=== PATIENT | female | born 1935 | race Caucasian/White ===

== ENCOUNTER 2017-01-15 06:48 | Day surgery (SDC) | payer MEDICARE, BC ==
[~2017-01-15 06:48] MED LIST: Lactated Ringers 1,000 ML IV SCH; Lidocaine 1%/Sod Bicarbonate in NS 8.4% 1 ML Syringe PRN; Sodium Chloride 0.9% 10 ML Syringe FLUSH PRN
--- NOTE | 2017-01-15 07:21 | PCM.PREANE ---
Preanesthetic Assessment - Anesthesia/Transfusion/Family Hx Anesthesia History: Prior Anesthesia Without Reaction Type of Anesthesia Reaction: Other (see below) Family History of Anesthesia Reaction: No Transfusion History: Unknown - Review of Systems General: No Symptoms Pulmonary: No Symptoms, Shortness of Breath Cardiovascular: No Symptoms, Other (HTN) Gastrointestinal: Other (GERD, controlled with meds) Other: Reports: Diabetes (am blood sugar 69), Thyroid Problems - Physical Assessment NPO Status Date: 01/14/17 NPO Status Time: 21:00 Pulse: 65 O2 Sat by Pulse Oximetry: 97 Respiratory Rate: 16 Blood Pressure: 115/88 Temperature: 36.4 C Weight: 74.707 kg ASA Class: 3 Mental Status: Alert & Oriented x3 Airway Class: Mallampati = 3 Dentition: Reports: Normal Dentition Thyro-Mental Finger Breadths: 3 Mouth Opening Finger Breadths: 3 ROM/Head Extension: Limited/Partial Lungs: Clear to auscultation, Normal respiratory effort Cardiovascular: Regular Rate, Regular Rhythm - Allergies Allergies/Adverse Reactions: Allergies Allergy/AdvReac Type Severity Reaction Status Date / Time No Known Allergies Allergy Verified 01/14/17 15:32 - Blood Blood Available: No Product(s) Available: None - Anesthesia Plan Pre-Op Medication Ordered: None Med Last Dose Date: 01/15/17 Med Last Dose Time: 06:00 - Acknowledgements Anesthesia Type Planned: ABBIE, MAC Pt an Appropriate Candidate for the Planned Anesthesia: Yes Alternatives and Risks of Anesthesia Discussed w Pt/Guardian: Yes Pt/Guardian Understands and Agrees with Anesthesia Plan: Yes PreAnesthesia Questionnaire HEENT History: Reports: Other (See Below) Other HEENT History: impacted cerumen Cardiovascular History: Reports: High Cholesterol, Hypertension, Other (See Below) Other Cardiovascular History: edema Respiratory History: Reports: SOB Gastrointestinal History: Reports: GERD Genitourinary History: Reports: UTI, Recurrent, Other (See Below) Other Genitourinary History: CKD IV, L kidney mass 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 Musculoskeletal History: Reports: Arthritis, Back Pain, Chronic, Osteoporosis, Other (See Below) Other Musculoskeletal History: lumbar degenerative disk disease, R lower leg pain, restless leg syndrome Neurological History: Reports: None Psychiatric History: Reports: None Endocrine/Metabolic History: Reports: Diabetes, Type II, Hypothyroidism, Other ( See Below) Other Endocrine/Metabolic History: vitamin b 12 deficiency Hematologic History: Reports: Anemia, Iron Deficiency, Other (See Below) Other Hematologic History: leukocytosis Immunologic History: Reports: None Oncologic (Cancer) History: Reports: Other (See Below) Other Oncologic History: mediastinal adenopathy, lympadenopathy Dermatologic History: Reports: None - Past Surgical History Head Surgeries/Procedures: HEENT Surgical History: Reports: Cataract Surgery GI Surgical History: Reports: Cholecystectomy Female Surgical History: Reports: Hysterectomy Musculoskeletal Surgical History: Reports: Knee Replacement - SUBSTANCE USE Smoking Status *Q: Never Smoker Recreational Drug Use History: No - HOME MEDS Home Medications: Home Meds Alendronate Sodium [Fosamax] 70 mg PO WEEKLY 01/14/17 [History] Ascorbic Acid [Vitamin C] 1,000 mg PO DAILY 01/14/17 [History] Aspirin [Halfprin] 81 mg PO DAILY 01/14/17 [History] Calcium Carbonate/Vitamin D3 [Calcium 600 + Vit D 200] 1 tab PO DAILY 01/14/17 [ History] Carvedilol [Carvedilol] 6.25 mg PO BID 01/14/17 [History] Furosemide [Furosemide] 10 mg PO DAILY 01/14/17 [History] Hydrocodone/Acetaminophen [Hydrocodon-Acetaminophen 5-325] 1 tab PO Q6H PRN [History] Insulin Aspart [NovoLOG] 10 units SQ TID 01/14/17 [History] Insulin Glarg,Human.Rec.Analog [LantUS Solostar] 26 units SQ DAILY 01/14/17 [ History] Levothyroxine [Synthroid] 50 mcg PO DAILY 01/14/17 [History] Ranitidine [Zantac] 150 mg PO BID 01/14/17 [History] atorvaSTATin Calcium [Atorvastatin Calcium] 80 mg PO DAILY 01/14/17 [History] rOPINIRole [Requip] 0.25 mg PO ASDIRECTED PRN 01/14/17 [History] traMADol [Ultram] 50 mg PO TID PRN 01/14/17 [History] - CURRENT (IN HOUSE) MEDS Current Meds: Current Medications Lactated Ringer's (Ringers, Lactated) 1,000 mls @ 125 mls/hr IV ASDIRECTED JACQUELINE Stop: 01/15/17 23:00 Lidocaine/Sodium Bicarbonate (Buffered Lidocaine 1% In Ns 8.4%) 0.25 ml .XX ONETIME PRN PRN Reason: Prior to IV Start Stop: 01/15/17 18:00 Sodium Chloride (Saline Flush) 10 ml FLUSH ASDIRECTED PRN PRN Reason: Keep Vein Open Stop: 01/15/17 18:00
[2017-01-15] MEDS ORDERED: fentaNYL 100 MCG/2 ML SDV ONE (07:44)
[2017-01-15] MEDS ORDERED: Propofol 200 MG/20 ML SDV ONE ×2 (07:44→08:42)
[2017-01-15] MEDS ORDERED: Sodium Chloride 0.9% 1,000 ML IV SCH (08:00)
--- NOTE | 2017-01-15 08:49 | PCM48HPAN ---
Post Anesthesia Note - EVALUATION WITHIN 48HRS OF ANESTHETIC Vital Signs in Normal Range: Yes Patient Participated in Evaluation: Yes Respiratory Function Stable: Yes Airway Patent: Yes Cardiovascular Function Stable: Yes Hydration Status Stable: Yes Pain Control Satisfactory: Yes Nausea and Vomiting Control Satisfactory: Yes Mental Status Recovered: Yes
--- NOTE | 2017-01-15 08:54 | PCM.OPNOTE ---
- General Post-Op/Procedure Note Date of Surgery/Procedure: 01/15/17 Operative Procedure(s): 1. EGD with antral polypectomy. 2. Colonoscopy Findings: 1. Antral polyp 2. Hiatal hernia 3. Internal hemorrhoids No ulcers or peptic change seen on upper endoscopy. Pre Op Diagnosis: 1. GERD. 2. Melena Post-Op Diagnosis: 1. Antral polyp. 2. Sliding hiatal hernia. 3. Internal hemorrhoids Anesthesia Technique: MAC, Moderate sedation Primary Surgeon: Popeye Wren Pathology: smallantral polyp EBL in mLs: 0 Complications: None Condition: Good Free Text/Narrative:: After adequate IV sedation and analgesia was obtained the patient was placed in the left lateral decubitus position with monitoring. Through a bite-block a lubricated upper endoscope was inserted into the esophagus and advanced under direct vision to the stomach. Air was given here followed by entry into the duodenum. The first and second parts of the duodenum were endoscopically normal with no mass lesions or inflammatory changes seen. The antrum had a small diminutive polyp which was removed with cold forceps. There was no antritis, gastritis, or gastric ulcers seen in 2 views. In the retroflexed view there was a sliding hiatal hernia. The fundus and cardiac regions were normal. The rugal folds and gastric motility was grossly normal. The hiatal hernia had no gastritis. The GE junction was endoscopically normal with no inflammatory changes seen, or ulcers seen. There was no stricturing. The body of the esophagus was unremarkable. Photographs were taken for the patient and for the record. Perianal inspection and digital rectal examination revealed the internal hemorrhoids. A lubricated colonoscope was inserted into the rectum and advanced to the cecum without difficulty. The cecum, right colon, transverse, and descending colons were endoscopically normal with no mass lesions or inflammatory changes seen. The sigmoid and rectum are unremarkable. Photographs were taken for the patient and for the record. Air was removed as I finished the procedure which she tolerated well.
[2017-01-15 10:27] VITALS: BP 151/65
== END 2017-01-15 09:35 | disposition home or self-care (01) ==
LOC: JD.SDS 06:48
PROVIDERS: ATTEND Surgery
PROC: 0DB68ZX Excision of Stomach, Via Natural or Artificial Opening Endoscopic, Diagnostic (ICD-10-PCS; principal; 2017-01-15)
PROC: 0DJD8ZZ Inspection of Lower Intestinal Tract, Via Natural or Artificial Opening Endoscopic (ICD-10-PCS; 2017-01-15)
DX: D50.9 Iron deficiency anemia, unspecified (principal); K31.7 Polyp of stomach and duodenum; K64.8 Other hemorrhoids; K92.1 Melena; K44.9 Diaphragmatic hernia without obstruction or gangrene; I12.9 Hypertensive chronic kidney disease with stage 1 through stage 4 chronic kidney disease, or unspecified chronic kidney disease; E11.22 Type 2 diabetes mellitus with diabetic chronic kidney disease; N18.4 Chronic kidney disease, stage 4 (severe); Z79.4 Long term (current) use of insulin; M81.0 Age-related osteoporosis without current pathological fracture; E78.00 Pure hypercholesterolemia, unspecified; E03.9 Hypothyroidism, unspecified
CPT/HCPCS: 36415; 43239; 45378; 82962; 85025; J3010; J7040; 00740; 88305; J2704

== ENCOUNTER 2018-12-19 12:22 | Observation (INO) | payer MEDICARE, OTHER ==
[2018-12-19] MEDS ORDERED: Sodium Chloride 0.9% 10 ML Syringe FLUSH PRN (13:10)
[2018-12-19] MEDS ORDERED: Dextrose 5%-Lactated Ringers 1,000 ML IV SCH (16:30)
--- NOTE | 2018-12-19 17:16 | EDM.PDOC ---
ED HPI GENERAL MEDICAL PROBLEM - General Chief Complaint: Diabetic Complaint Stated Complaint: LOW BLOOD SUGAR Time Seen by Provider: 12/19/18 12:55 Source of Information: Reports: Patient History Limitations: Reports: No Limitations - History of Present Illness INITIAL COMMENTS - FREE TEXT/NARRATIVE: 83-year-old female arrives for evaluation and treatment of hypoglycemic episodes. Reportedly the patient had a blood sugar of 34 this morning around 10 AM. She had some orange juice and 7 up. Current blood sugar is 78. States she had a low blood sugar last night as well. Per family this is about the fourth low blood sugar she's had this week. Will normally have about one a month. A she reports feeling confused, fatigued and diaphoretic with the associated low blood sugars. She denies any chest pain, shortness of breath, nausea, vomiting, polyuria or polydipsia. She has identified some pain to the left side of her abdomen. No recent antibiotics. She had some toast and summer sausage to eat this morning. It sounds as she had a full meal yesterday. Patient is on Tresiba, taken at night. No change to this medication in over a year. She is also on NovoLog 3 times a day, 12 units in the morning and 8 units with lunch and dinner. No recent changes to this medication. Denies any chance of taking extra insulin. Primary care provider is Zoe Wang. - Related Data Allergies Allergy/AdvReac Type Severity Reaction Status Date / Time No Known Allergies Allergy Verified 12/19/18 12:32 Home Meds: Home Meds Alendronate Sodium [Fosamax] 70 mg PO WEEKLY 01/14/17 [History] Ascorbic Acid [Vitamin C] 1,000 mg PO DAILY 01/14/17 [History] Carvedilol 6.25 mg PO BID 01/14/17 [History] Furosemide 20 mg PO DAILY 01/14/17 [History] Levothyroxine [Synthroid] 50 mcg PO ACBREAKFAST 01/14/17 [History] atorvaSTATin Calcium [Atorvastatin Calcium] 80 mg PO BEDTIME 01/14/17 [History] Omeprazole 40 mg PO ACBREAKFAST 12/19/18 [History] Insulin Aspart [NovoLOG] 5 unit SQ TIDAC #1 pen 12/20/18 [Rx] Insulin Degludec [Tresiba] 15 units SUBCUT BEDTIME #1 vial 12/20/18 [Rx] Past Medical History HEENT History: Reports: Other (See Below) Other HEENT History: impacted cerumen Cardiovascular History: Reports: High Cholesterol, Hypertension, Other (See Below) Other Cardiovascular History: edema Respiratory History: Reports: SOB Gastrointestinal History: Reports: GERD Genitourinary History: Reports: UTI, Recurrent, Other (See Below) Other Genitourinary History: CKD IV, L kidney mass 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 Musculoskeletal History: Reports: Arthritis, Back Pain, Chronic, Osteoporosis, Other (See Below) Other Musculoskeletal History: lumbar degenerative disk disease, R lower leg pain, restless leg syndrome Neurological History: Reports: None Psychiatric History: Reports: None Endocrine/Metabolic History: Reports: Diabetes, Type II, Hypothyroidism, Other ( See Below) Other Endocrine/Metabolic History: vitamin b 12 deficiency Hematologic History: Reports: Anemia, Iron Deficiency, Other (See Below) Other Hematologic History: leukocytosis Immunologic History: Reports: None Oncologic (Cancer) History: Reports: Other (See Below) Other Oncologic History: mediastinal adenopathy, lympadenopathy Dermatologic History: Reports: None - Past Surgical History HEENT Surgical History: Reports: Cataract Surgery GI Surgical History: Reports: Cholecystectomy Female Surgical History: Reports: Hysterectomy Musculoskeletal Surgical History: Reports: Knee Replacement Social & Family History - Tobacco Use Smoking Status *Q: Never Smoker Second Hand Smoke Exposure: No - Caffeine Use Caffeine Use: Reports: Coffee - Recreational Drug Use Recreational Drug Use: No ED ROS GENERAL - Review of Systems Review Of Systems: See Below Constitutional: Denies: Fever, Chills, Diaphoresis (with hypoglycemia episodes) Respiratory: Denies: Shortness of Breath Cardiovascular: Denies: Chest Pain, Palpitations Endocrine: Reports: Low Glucose. Denies: Polydypsia, Polyuria GI/Abdominal: Reports: Abdominal Pain (left sided ). Denies: Diarrhea, Nausea ( associated with hypoglycemia episodes ), Vomiting : Reports: No Symptoms Neurological: Denies: Confusion (associated wiht hypoglycemic episodes) ED EXAM GENERAL NO PERIP PULSE - Physical Exam Exam: See Below Exam Limited By: No Limitations General Appearance: Alert, WD/WN, No Apparent Distress Eye Exam: Bilateral Eye: Normal Inspection Ears: Normal External Exam Nose: Normal Inspection Throat/Mouth: Normal Inspection, Normal Lips, Normal Oropharynx, Normal Voice, No Airway Compromise Respiratory/Chest: No Respiratory Distress, Lungs Clear, Normal Breath Sounds Cardiovascular: Normal Peripheral Pulses, Other (irregular pulse) GI/Abdominal: Normal Bowel Sounds, Soft, Non-Tender Neurological: Alert, Oriented, Normal Cognition Psychiatric: Normal Affect, Normal Mood Skin Exam: Warm, Dry, Normal Color EKG INTERPRETATION EKG Date: 12/19/18 Time: 13:23 Rhythm: Other (sinus dysrhythmia) Rate (Beats/Min): 61 [place]: Normal P-Wave: Present QRS: Normal ST-T: Normal QT: Normal EKG Interpretation Comments: Sinus dysrhythmia at 61 bpm. 1 PAC. No ischemic changes. Reviewed by myself and Dr. Little. Course - Vital Signs Last Recorded V/S: Last Vital Signs Temp 97.9 F 12/20/18 08:21 Pulse 80 12/20/18 08:21 Resp 18 12/20/18 08:21 BP 125/88 12/20/18 08:21 Pulse Ox 97 12/20/18 08:21 - Orders/Labs/Meds Labs: Laboratory Tests 12/19/18 12/19/18 12/19/18 Range/Units 12:29 12:55 12:55 WBC 14.24 H (3.98-10.04) K/mm3 RBC 4.69 (3.98-5.22) M/mm3 Hgb 11.6 (11.2-15.7) gm/L Hct 38.3 (34.1-44.9) % MCV 81.7 (79.4-94.8) fl MCH 24.7 L (25.6-32.2) pg MCHC 30.3 L (32.2-35.5) g/dl RDW Std Deviation 48.2 H (36.4-46.3) fL Plt Count 325 (182-369) K/mm3 MPV 10.4 (9.4-12.3) fl Neutrophils % (Manual) 46 (40-60) % Band Neutrophils % 0 (0-10) % Lymphocytes % (Manual) 41 H (20-40) % Atypical Lymphs % 0 % Monocytes % (Manual) 10 (2-10) % Eosinophils % (Manual) 3 (0.7-5.8) % Basophils % (Manual) 0 L (0.1-1.2) Platelet Estimate Adequate Hypochromasia 1+ slight Anisocytosis 3+ marked RBC Morph Comment Abnormal Sodium 141 (136-145) mEq/L Potassium 4.3 (3.5-5.1) mEq/L Chloride 106 (98-107) mEq/L Carbon Dioxide 26 (21-32) mEq/L Anion Gap 13.3 (5-15) BUN 35 H (7-18) mg/dL Creatinine 2.2 H (0.55-1.02) mg/dL Est Cr Clr Drug Dosing 18.05 mL/min Estimated GFR (MDRD) 21 (>60) mL/min BUN/Creatinine Ratio 15.9 (14-18) Glucose 41 L (83-115) mg/dL POC Glucose 78 L (83-110) mg/dL Calcium 9.4 (8.5-10.1) mg/dL Magnesium (1.8-2.4) mg/dl Total Bilirubin 0.4 (0.2-1.0) mg/dL AST 19 (15-37) U/L ALT 17 (14-59) U/L Alkaline Phosphatase 91 (46-116) U/L Troponin I (0.00-0.056) ng/mL C-Reactive Protein < 0.2 (<1.0) mg/dL Total Protein 6.9 (6.4-8.2) g/dl Albumin 3.5 (3.4-5.0) g/dl Globulin 3.4 gm/dL Albumin/Globulin Ratio 1.0 (1-2) TSH 3rd Generation 1.286 (0.358-3.74) uIU/mL 12/19/18 12/19/18 12/19/18 Range/Units 12:55 14:24 14:34 WBC (3.98-10.04) K/mm3 RBC (3.98-5.22) M/mm3 Hgb (11.2-15.7) gm/L Hct (34.1-44.9) % MCV (79.4-94.8) fl MCH (25.6-32.2) pg MCHC (32.2-35.5) g/dl RDW Std Deviation (36.4-46.3) fL Plt Count (182-369) K/mm3 MPV (9.4-12.3) fl Neutrophils % (Manual) (40-60) % Band Neutrophils % (0-10) % Lymphocytes % (Manual) (20-40) % Atypical Lymphs % % Monocytes % (Manual) (2-10) % Eosinophils % (Manual) (0.7-5.8) % Basophils % (Manual) (0.1-1.2) Platelet Estimate Hypochromasia Anisocytosis RBC Morph Comment Sodium (136-145) mEq/L Potassium (3.5-5.1) mEq/L Chloride (98-107) mEq/L Carbon Dioxide (21-32) mEq/L Anion Gap (5-15) BUN (7-18) mg/dL Creatinine (0.55-1.02) mg/dL Est Cr Clr Drug Dosing mL/min Estimated GFR (MDRD) (>60) mL/min BUN/Creatinine Ratio (14-18) Glucose 110 (83-115) mg/dL POC Glucose 131 H (83-110) mg/dL Calcium (8.5-10.1) mg/dL Magnesium (1.8-2.4) mg/dl Total Bilirubin (0.2-1.0) mg/dL AST (15-37) U/L ALT (14-59) U/L Alkaline Phosphatase (46-116) U/L Troponin I < 0.017 (0.00-0.056) ng/mL C-Reactive Protein (<1.0) mg/dL Total Protein (6.4-8.2) g/dl Albumin (3.4-5.0) g/dl Globulin gm/dL Albumin/Globulin Ratio (1-2) TSH 3rd Generation (0.358-3.74) uIU/mL 12/19/18 Range/Units 14:34 WBC (3.98-10.04) K/mm3 RBC (3.98-5.22) M/mm3 Hgb (11.2-15.7) gm/L Hct (34.1-44.9) % MCV (79.4-94.8) fl MCH (25.6-32.2) pg MCHC (32.2-35.5) g/dl RDW Std Deviation (36.4-46.3) fL Plt Count (182-369) K/mm3 MPV (9.4-12.3) fl Neutrophils % (Manual) (40-60) % Band Neutrophils % (0-10) % Lymphocytes % (Manual) (20-40) % Atypical Lymphs % % Monocytes % (Manual) (2-10) % Eosinophils % (Manual) (0.7-5.8) % Basophils % (Manual) (0.1-1.2) Platelet Estimate Hypochromasia Anisocytosis RBC Morph Comment Sodium (136-145) mEq/L Potassium (3.5-5.1) mEq/L Chloride (98-107) mEq/L Carbon Dioxide (21-32) mEq/L Anion Gap (5-15) BUN (7-18) mg/dL Creatinine (0.55-1.02) mg/dL Est Cr Clr Drug Dosing mL/min Estimated GFR (MDRD) (>60) mL/min BUN/Creatinine Ratio (14-18) Glucose (83-115) mg/dL POC Glucose (83-110) mg/dL Calcium (8.5-10.1) mg/dL Magnesium 2.1 (1.8-2.4) mg/dl Total Bilirubin (0.2-1.0) mg/dL AST (15-37) U/L ALT (14-59) U/L Alkaline Phosphatase (46-116) U/L Troponin I (0.00-0.056) ng/mL C-Reactive Protein (<1.0) mg/dL Total Protein (6.4-8.2) g/dl Albumin (3.4-5.0) g/dl Globulin gm/dL Albumin/Globulin Ratio (1-2) TSH 3rd Generation (0.358-3.74) uIU/mL Meds: Medications Discontinued Medications Generic Name Dose Route Start Last Admin Trade Name Freq PRN Reason Stop Dose Admin Acetaminophen 650 mg 12/19/18 17:55 Tylenol PO Q4H PRN Pain (Mild 1-3)/fever Carvedilol 6.25 mg 12/19/18 21:00 12/20/18 08:21 Coreg PO 6.25 mg BID JACQUELINE Administration Furosemide 20 mg 12/20/18 09:00 12/20/18 08:12 Lasix PO 20 mg DAILY JACQUELINE Administration Dextrose/Lactated Ringer's 1,000 mls @ 75 mls/hr 12/19/18 16:30 12/19/18 17: 11 Dextrose 5%-Lactated Ringers IV 75 mls/hr ASDIRECTED JACQUELINE Administration Insulin Glargine 15 unit 12/20/18 21:00 Lantus SUBCUT BEDTIME JACQUELINE Insulin Human Lispro 2 unit 12/19/18 17:50 12/19/18 18:04 Humalog SUBCUT 12/19/18 17:51 2 units ONETIME ONE Administration Insulin Human Lispro 0 unit 12/19/18 22:00 12/20/18 11:44 Humalog SUBCUT 2 units QIDACANDBED JACQUELINE Administration Protocol Insulin Human Lispro 3 unit 12/20/18 07:00 12/20/18 11:00 Humalog SUBCUT Not Given TIDAC JACQUELINE Insulin Human Lispro 4 unit 12/20/18 08:18 12/20/18 11:45 Humalog SUBCUT 4 units TIDAC JACQUELINE Administration Levothyroxine Sodium 50 mcg 12/20/18 06:00 12/20/18 05:44 Synthroid PO 50 mcg ACBREAKFAST JACQUELINE Administration Omeprazole 40 mg 12/20/18 06:00 12/20/18 05:51 Omeprazole PO Not Given ACBREAKFAST JACQUELINE Pantoprazole Sodium 40 mg 12/20/18 08:15 12/20/18 08:12 Protonix PO 40 mg ACBREAKFAST JACQUELINE Administration Sodium Chloride 10 ml 12/19/18 13:10 12/19/18 13:24 Saline Flush FLUSH 10 ml ASDIRECTED PRN Administration Keep Vein Open - Radiology Interpretation Free Text/Narrative:: chest xray shows no acute intrathoracic process, formal radiology read pending. abdominal xray shows no acute process, formal read pending. - Re-Assessments/Exams Free Text/Narrative Re-Assessment/Exam: 12/19/18 16:19 Discussed the labs, ekg and imaging with the patient and her family. No obvious reason for hypoglycemic episodes. She likely needs her insulin readjusted. Patient and family are quite concerned about episodes and she does not feel comfortable going home. Spoke with Dr. Collins, hospitalist, who agrees to an observation admission to monitor her sugars and telemetry. Patient will be med/surg with tele, observation. Departure - Departure Time of Disposition: 16:20 Disposition: Refer to Observation Condition: Fair Clinical Impression: Hypoglycemia associated with type 2 diabetes mellitus - Discharge Information *PRESCRIPTION DRUG MONITORING PROGRAM REVIEWED*: No *COPY OF PRESCRIPTION DRUG MONITORING REPORT IN PATIENT GOKUL: No
[2018-12-19] MEDS ORDERED: Insulin Lispro 100 Units/ML 3 ML Vial SUBCUT ONE (17:50)
[2018-12-19] MEDS ORDERED: Acetaminophen 325 MG Tab PO PRN (17:55)
--- NOTE | 2018-12-19 18:06 | PCM.HP ---
H&P History of Present Illness - General Date of Service: 12/19/18 Admit Problem/Dx: Admission Diagnosis/Problem Admission Diagnosis/Problem Hypoglycemia Source of Information: Patient, Family, Provider History Limitations: Reports: No Limitations - History of Present Illness Initial Comments - Free Text/Narative: 83-year-old female presented to the emergency room this morning after having a blood sugar in the 30s. She states that since the fourth episode in 1 week. This morning it occurred approximately 2-3 hours after her morning insulin. She had a light breakfast of a piece of toast and some sausage and took her 12 units of NovoLog. On patient had her NovoLog increased by her community health educator from 10-12 units. Patient states the night before she also had a low blood sugar in the 50s after a similar episode. This time after 7 units of insulin 2-3 hours later she had a blood sugar in the 50s. Her noon and evening insulins were decreased by her community health educator on during the day and her 3 of her 4 low blood sugars were after the adjustments of her insulin. She is wearing patch that keeps track of her blood sugars and real-time and symptoms into her community health educator. Patient is on Tresiba 24 units a day. She takes it around 9:30 in the evening. She has been on Tresiba since last summer. This is the first time she has had any significant episodes of hypoglycemia. Her hemoglobin A1c is 8%. During these episodes she gets sweaty and disoriented. She has no weight loss or change in renal function. Her creatinine is 2.2 but it has been stable for a couple of years. She denies any chest pain, orthopnea, PND, dyspnea on exertion, difficulty breathing, shortness of breath, abdominal pain, nausea, vomiting, change in bowel habits, hematochezia, or melena. - Related Data Allergies/Adverse Reactions: Allergies Allergy/AdvReac Type Severity Reaction Status Date / Time No Known Allergies Allergy Verified 12/19/18 12:32 Home Medications: Home Meds Alendronate Sodium [Fosamax] 70 mg PO WEEKLY 01/14/17 [History] Ascorbic Acid [Vitamin C] 1,000 mg PO DAILY 01/14/17 [History] Calcium Carbonate/Vitamin D3 [Calcium 600 + Vit D 200] 1 tab PO BID 01/14/17 [ History] Carvedilol 6.25 mg PO BID 01/14/17 [History] Furosemide 20 mg PO DAILY 01/14/17 [History] Insulin Aspart [NovoLOG] 12 units SQ QAM 01/14/17 [History] Levothyroxine [Synthroid] 50 mcg PO ACBREAKFAST 01/14/17 [History] atorvaSTATin Calcium [Atorvastatin Calcium] 80 mg PO BEDTIME 01/14/17 [History] Insulin Aspart [NovoLOG] 7 units SUBCUT BIDMEALS 12/19/18 [History] Insulin Degludec [Tresiba] 24 units SUBCUT BEDTIME 12/19/18 [History] Omeprazole 40 mg PO ACBREAKFAST 12/19/18 [History] Past Medical History HEENT History: Reports: Other (See Below) Other HEENT History: impacted cerumen Cardiovascular History: Reports: High Cholesterol, Hypertension, Other (See Below) Other Cardiovascular History: edema Respiratory History: Reports: SOB Gastrointestinal History: Reports: GERD Genitourinary History: Reports: UTI, Recurrent, Other (See Below) Other Genitourinary History: CKD IV, L kidney mass [employer] History: Reports: None Musculoskeletal History: Reports: Arthritis, Back Pain, Chronic, Osteoporosis, Other (See Below) Other Musculoskeletal History: lumbar degenerative disk disease, R lower leg pain, restless leg syndrome Neurological History: Reports: None Psychiatric History: Reports: None Endocrine/Metabolic History: Reports: Diabetes, Type II, Hypothyroidism, Other ( See Below) Other Endocrine/Metabolic History: vitamin b 12 deficiency Hematologic History: Reports: Anemia, Iron Deficiency, Other (See Below) Other Hematologic History: leukocytosis Immunologic History: Reports: None Oncologic (Cancer) History: Reports: Other (See Below) Other Oncologic History: mediastinal adenopathy, lympadenopathy Dermatologic History: Reports: None - Past Surgical History HEENT Surgical History: Reports: Cataract Surgery GI Surgical History: Reports: Cholecystectomy Female Surgical History: Reports: Hysterectomy Musculoskeletal Surgical History: Reports: Knee Replacement Social & Family History - Tobacco Use Smoking Status *Q: Never Smoker Second Hand Smoke Exposure: No - Caffeine Use Caffeine Use: Reports: Coffee - Recreational Drug Use Recreational Drug Use: No H&P Review of Systems - Review of Systems: Review Of Systems: ROS reveals no pertinent complaints other than HPI. Exam - Exam Exam: See Below - Vital Signs Vital Signs: Last Vital Signs Temp 97.3 F 12/19/18 16:44 Pulse 71 12/19/18 16:44 Resp 16 12/19/18 16:44 BP 154/83 H 12/19/18 16:44 Pulse Ox 100 12/19/18 16:44 Weight: 178 lb 9.6 oz - Exam General: Alert, Oriented HEENT: Conjunctiva Clear, EACs Clear, Mucosa Moist & [place], Posterior Pharynx Clear Neck: Supple, Trachea Midline Lungs: Clear to Auscultation, Normal Respiratory Effort Cardiovascular: Regular Rate, Regular Rhythm GI/Abdominal Exam: Normal Bowel Sounds, Soft, Non-Tender, No Organomegaly, No Distention Extremities: Normal Inspection, Normal Range of Motion, Non-Tender, No Pedal Edema Skin: Warm, Dry, Intact Neuro Extensive - Mental Status: Alert, Oriented x3, Normal Mood/Affect, Normal Cognition Neuro Extensive - Motor, Sensory, Reflexes: CN II-XII Intact Psychiatric: Alert, Normal Affect, Normal Mood - Patient Data Lab Results Last 24 hrs: Laboratory Results - last 24 hr 12/19/18 12/19/18 12/19/18 Range/Units 12:29 12:55 12:55 WBC 14.24 H (3.98-10.04) K/mm3 RBC 4.69 (3.98-5.22) M/mm3 Hgb 11.6 (11.2-15.7) gm/L Hct 38.3 (34.1-44.9) % MCV 81.7 (79.4-94.8) fl MCH 24.7 L (25.6-32.2) pg MCHC 30.3 L (32.2-35.5) g/dl RDW Std Deviation 48.2 H (36.4-46.3) fL Plt Count 325 (182-369) K/mm3 MPV 10.4 (9.4-12.3) fl Neutrophils % (Manual) 46 (40-60) % Band Neutrophils % 0 (0-10) % Lymphocytes % (Manual) 41 H (20-40) % Atypical Lymphs % 0 % Monocytes % (Manual) 10 (2-10) % Eosinophils % (Manual) 3 (0.7-5.8) % Basophils % (Manual) 0 L (0.1-1.2) Platelet Estimate Adequate Hypochromasia 1+ slight Anisocytosis 3+ marked RBC Morph Comment Abnormal Sodium 141 (136-145) mEq/L Potassium 4.3 (3.5-5.1) mEq/L Chloride 106 (98-107) mEq/L Carbon Dioxide 26 (21-32) mEq/L Anion Gap 13.3 (5-15) BUN 35 H (7-18) mg/dL Creatinine 2.2 H (0.55-1.02) mg/dL Est Cr Clr Drug Dosing 18.05 mL/min Estimated GFR (MDRD) 21 (>60) mL/min BUN/Creatinine Ratio 15.9 (14-18) Glucose 41 L (83-115) mg/dL POC Glucose 78 L (83-110) mg/dL Calcium 9.4 (8.5-10.1) mg/dL Magnesium (1.8-2.4) mg/dl Total Bilirubin 0.4 (0.2-1.0) mg/dL AST 19 (15-37) U/L ALT 17 (14-59) U/L Alkaline Phosphatase 91 (46-116) U/L Troponin I (0.00-0.056) ng/mL C-Reactive Protein < 0.2 (<1.0) mg/dL Total Protein 6.9 (6.4-8.2) g/dl Albumin 3.5 (3.4-5.0) g/dl Globulin 3.4 gm/dL Albumin/Globulin Ratio 1.0 (1-2) TSH 3rd Generation 1.286 (0.358-3.74) uIU/mL 12/19/18 12/19/18 12/19/18 Range/Units 12:55 14:24 14:34 WBC (3.98-10.04) K/mm3 RBC (3.98-5.22) M/mm3 Hgb (11.2-15.7) gm/L Hct (34.1-44.9) % MCV (79.4-94.8) fl MCH (25.6-32.2) pg MCHC (32.2-35.5) g/dl RDW Std Deviation (36.4-46.3) fL Plt Count (182-369) K/mm3 MPV (9.4-12.3) fl Neutrophils % (Manual) (40-60) % Band Neutrophils % (0-10) % Lymphocytes % (Manual) (20-40) % Atypical Lymphs % % Monocytes % (Manual) (2-10) % Eosinophils % (Manual) (0.7-5.8) % Basophils % (Manual) (0.1-1.2) Platelet Estimate Hypochromasia Anisocytosis RBC Morph Comment Sodium (136-145) mEq/L Potassium (3.5-5.1) mEq/L Chloride (98-107) mEq/L Carbon Dioxide (21-32) mEq/L Anion Gap (5-15) BUN (7-18) mg/dL Creatinine (0.55-1.02) mg/dL Est Cr Clr Drug Dosing mL/min Estimated GFR (MDRD) (>60) mL/min BUN/Creatinine Ratio (14-18) Glucose 110 (83-115) mg/dL POC Glucose 131 H (83-110) mg/dL Calcium (8.5-10.1) mg/dL Magnesium (1.8-2.4) mg/dl Total Bilirubin (0.2-1.0) mg/dL AST (15-37) U/L ALT (14-59) U/L Alkaline Phosphatase (46-116) U/L Troponin I < 0.017 (0.00-0.056) ng/mL C-Reactive Protein (<1.0) mg/dL Total Protein (6.4-8.2) g/dl Albumin (3.4-5.0) g/dl Globulin gm/dL Albumin/Globulin Ratio (1-2) TSH 3rd Generation (0.358-3.74) uIU/mL 12/19/18 12/19/18 Range/Units 14:34 17:31 WBC (3.98-10.04) K/mm3 RBC (3.98-5.22) M/mm3 Hgb (11.2-15.7) gm/L Hct (34.1-44.9) % MCV (79.4-94.8) fl MCH (25.6-32.2) pg MCHC (32.2-35.5) g/dl RDW Std Deviation (36.4-46.3) fL Plt Count (182-369) K/mm3 MPV (9.4-12.3) fl Neutrophils % (Manual) (40-60) % Band Neutrophils % (0-10) % Lymphocytes % (Manual) (20-40) % Atypical Lymphs % % Monocytes % (Manual) (2-10) % Eosinophils % (Manual) (0.7-5.8) % Basophils % (Manual) (0.1-1.2) Platelet Estimate Hypochromasia Anisocytosis RBC Morph Comment Sodium (136-145) mEq/L Potassium (3.5-5.1) mEq/L Chloride (98-107) mEq/L Carbon Dioxide (21-32) mEq/L Anion Gap (5-15) BUN (7-18) mg/dL Creatinine (0.55-1.02) mg/dL Est Cr Clr Drug Dosing mL/min Estimated GFR (MDRD) (>60) mL/min BUN/Creatinine Ratio (14-18) Glucose (83-115) mg/dL POC Glucose 231 H (83-110) mg/dL Calcium (8.5-10.1) mg/dL Magnesium 2.1 (1.8-2.4) mg/dl Total Bilirubin (0.2-1.0) mg/dL AST (15-37) U/L ALT (14-59) U/L Alkaline Phosphatase (46-116) U/L Troponin I (0.00-0.056) ng/mL C-Reactive Protein (<1.0) mg/dL Total Protein (6.4-8.2) g/dl Albumin (3.4-5.0) g/dl Globulin gm/dL Albumin/Globulin Ratio (1-2) TSH 3rd Generation (0.358-3.74) uIU/mL Result Diagrams: 12/19/18 12:55 12/19/18 12:55 - Problem List (1) Hypoglycemia associated with type 2 diabetes mellitus SNOMED Code(s): 777846991, 858324154 ICD Code: E11.649 - TYPE 2 DIABETES MELLITUS WITH HYPOGLYCEMIA WITHOUT COMA Status: Acute Current Visit: Yes Problem List Initiated/Reviewed/Updated: Yes Orders Last 24hrs: Active Orders 24 hr Category Date Time Status Patient Status [ADT] Routine ADT 12/19/18 16:17 Active Patient Status [ADT] Routine ADT 12/19/18 16:24 Active Antiembolic Devices [RC] PER UNIT ROUTINE Care 12/19/18 17:58 Ordered Blood Glucose Check, Bedside [RC] Q2H Care 12/19/18 20:00 Ordered Blood Glucose Check, Bedside [RC] TIDAC Care 12/19/18 18:01 Ordered Cardiac Monitoring [RC] . DIRECTED Care 12/19/18 13:10 Active Oxygen Therapy [RC] PRN Care 12/19/18 17:55 Ordered Peripheral IV Care [RC] Q2HR Care 12/19/18 13:10 Active Up ad Cortney [RC] ASDIRECTED Care 12/19/18 17:55 Ordered VTE/DVT Education [RC] PER UNIT ROUTINE Care 12/19/18 17:55 Ordered Vital Signs [RC] Q4H Care 12/19/18 17:55 Ordered ADA Diabetic [[place] [employer] Diet] [DIET Diet 12/19/18 Dinner Active ] Abdomen 1V Flat [CR] Stat Exams 12/19/18 13:07 Taken Chest 2V [CR] Stat Exams 12/19/18 13:07 Taken CBC WITH AUTO DIFF [HEME] AM Lab 12/20/18 05:11 Ordered COMPREHENSIVE METABOLIC PN,CMP [CHEM] AM Lab 12/20/18 05:11 Ordered UA W/MICROSCOPIC [URIN] Stat Lab 12/19/18 13:07 Ordered Acetaminophen [Tylenol] Med 12/19/18 17:55 Ordered 650 mg PO Q4H PRN Carvedilol [Coreg] Med 12/19/18 21:00 Ordered 6.25 mg PO BID Furosemide [Lasix] Med 12/20/18 09:00 Ordered 20 mg PO DAILY Insulin Glarg,Human.Rec.Analog [LantUS] Med 12/20/18 18:00 Ordered 15 unit SUBCUT QPM Insulin Lispro [HumaLOG] Med 12/20/18 07:00 Ordered 3 unit SUBCUT TIDAC Insulin Lispro [HumaLOG] Med 12/19/18 22:00 Ordered See Protocol SUBCUT QIDACANDBED Levothyroxine [Synthroid] Med 12/20/18 06:00 Ordered 50 mcg PO ACBREAKFAST Omeprazole [Omeprazole] Med 12/20/18 06:00 Ordered 40 mg PO ACBREAKFAST Sodium Chloride 0.9% [Saline Flush] Med 12/19/18 13:10 Active 10 ml FLUSH ASDIRECTED PRN Antiembolic Hose [OM.PC] Per Unit Routine Oth 12/19/18 17:55 Ordered Peripheral IV Insertion Adult [OM.PC] Routine Oth 12/19/18 13:08 Ordered Resuscitation Status Routine Resus Stat 12/19/18 17:23 Ordered Medication Orders Acetaminophen (Tylenol) 650 mg PO Q4H PRN PRN Reason: Pain (Mild 1-3)/fever Carvedilol (Coreg) 6.25 mg PO BID JACQUELINE Furosemide (Lasix) 20 mg PO DAILY JACQUELINE Sodium Chloride (Saline Flush) 10 ml FLUSH ASDIRECTED PRN PRN Reason: Keep Vein Open Last Admin: 12/19/18 13:24 Dose: 10 ml Assessment/Plan Comment:: Patient's hypoglycemia is likely multifactorial. We will decrease her long-acting insulin to 15 units a day. Unfortunately, we do not have Tresiba on formulary so we will have to use glargine here in the hospital. She was placed on D5 in the emergency room and her blood sugar on arrival to the floor was 231. She'll be given 2 units of Humalog to cover the elevated blood sugar and then we will start her on 3 units with each meal. We will cover with a sliding scale. She will get blood sugars every 2 hours for the first 4 hours and then if her blood sugars are stable he will check them every 4 hours.
[2018-12-19] MEDS: Carvedilol 6.25 MG Tab PO SCH (20:39)
[2018-12-19] MEDS: Insulin Lispro 100 Units/ML 3 ML Vial SUBCUT SCH (22:22)
[2018-12-20] MEDS: Omeprazole 20 MG Cap.CR PO SCH ×2 (05:45→05:51)
[2018-12-20] MEDS ORDERED: Levothyroxine 50 MCG Tab PO SCH (06:00)
[2018-12-20] MEDS: Insulin Lispro 100 Units/ML 3 ML Vial SUBCUT SCH ×4 (06:39→11:45)
[2018-12-20] MEDS ORDERED: Insulin Lispro 100 Units/ML 3 ML Vial SUBCUT SCH (07:00)
[2018-12-20] MEDS ORDERED: Pantoprazole 40 MG Tab.CR PO SCH (08:15)
[2018-12-20] MEDS: Carvedilol 6.25 MG Tab PO SCH (08:21)
[2018-12-20 08:28] VITALS: BP 125/88
[2018-12-20] MEDS ORDERED: Furosemide 20 MG Tab PO SCH (09:00)
--- NOTE | 2018-12-20 14:33 | PCM.DCSUM1 ---
Discharge Summary - Hospital Course HPI Initial Comments: 83-year-old female presented to the emergency room this morning after having a blood sugar in the 30s. She states that since the fourth episode in 1 week. This morning it occurred approximately 2-3 hours after her morning insulin. She had a light breakfast of a piece of toast and some sausage and took her 12 units of NovoLog. On patient had her NovoLog increased by her family life educator from 10-12 units. Patient states the night before she also had a low blood sugar in the 50s after a similar episode. This time after 7 units of insulin 2-3 hours later she had a blood sugar in the 50s. Her noon and evening insulins were decreased by her family life educator on during the day and her 3 of her 4 low blood sugars were after the adjustments of her insulin. She is wearing patch that keeps track of her blood sugars and real-time and symptoms into her family life educator. Patient is on Tresiba 24 units a day. She takes it around 9:30 in the evening. She has been on Tresiba since last summer. This is the first time she has had any significant episodes of hypoglycemia. Her hemoglobin A1c is 8%. During these episodes she gets sweaty and disoriented. She has no weight loss or change in renal function. Her creatinine is 2.2 but it has been stable for a couple of years. She denies any chest pain, orthopnea, PND, dyspnea on exertion, difficulty breathing, shortness of breath, abdominal pain, nausea, vomiting, change in bowel habits, hematochezia, or melena. Brief History: Patient had uneventful hospital course. I decreased her Tresiba to 15 units. Her blood sugars did range a little high around 200, but this is certainly safer than 50 and below. She will be discharged on NovoLog 5 units with each meal, but this too will likely need to be adjusted. Diagnosis: Stroke: No - Discharge Data Discharge Date: 12/20/18 Discharge Disposition: Home, Self-Care 01 Condition: Good - Discharge Diagnosis/Problem(s) (1) Hypoglycemia associated with type 2 diabetes mellitus SNOMED Code(s): 511204896, [id number] ICD Code: E11.649 - TYPE 2 DIABETES MELLITUS WITH HYPOGLYCEMIA WITHOUT COMA Status: Acute Current Visit: Yes - Patient Instructions Diet: Diabetic Diet Activity: As Tolerated Driving: Do Not Drive Showering/Bathing: May Shower Other/Special Instructions: I am decreasing Tresiba to 15 units a day and your NovoLog to 5 units with each meal. I recognize that this needs to be adjusted as an outpatient, but this will keep you from becoming hypoglycemic. Hypoglycemia is much more dangerous than mild hyperglycemia. Trying to keep your blood sugars around the 150 is safe for your age and will keep you from developing life-threatening hypoglycemia. - Discharge Plan *PRESCRIPTION DRUG MONITORING PROGRAM REVIEWED*: Not Applicable *COPY OF PRESCRIPTION DRUG MONITORING REPORT IN PATIENT GOKUL: Not Applicable Prescriptions/Med Rec: Insulin Aspart [NovoLOG] 5 unit SQ TIDAC #1 pen Insulin Degludec [Tresiba] 15 units SUBCUT BEDTIME #1 vial Home Medications: Home Meds Alendronate Sodium [Fosamax] 70 mg PO WEEKLY 01/14/17 [History] Ascorbic Acid [Vitamin C] 1,000 mg PO DAILY 01/14/17 [History] Carvedilol 6.25 mg PO BID 01/14/17 [History] Furosemide 20 mg PO DAILY 01/14/17 [History] Levothyroxine [Synthroid] 50 mcg PO ACBREAKFAST 01/14/17 [History] atorvaSTATin Calcium [Atorvastatin Calcium] 80 mg PO BEDTIME 01/14/17 [History] Omeprazole 40 mg PO ACBREAKFAST 12/19/18 [History] Insulin Aspart [NovoLOG] 5 unit SQ TIDAC #1 pen 12/20/18 [Rx] Insulin Degludec [Tresiba] 15 units SUBCUT BEDTIME #1 vial 12/20/18 [Rx] Oxygen Therapy Mode: Room Air Forms: ED Department Discharge Referrals: Zoe Wang, [facility]IGHER [Primary Care Provider] - (please schedule a hospital follow up appointment with Zoe Wang within 7-10 days.) - Discharge Summary/Plan Comment DC Time >30 min.: Yes Discharge Summary/Plan Comment: Discharged home on Tresiba 15 units daily and NovoLog 5 units with each meal. Follow-up with your primary care provider next week. - General Info Date of Service: 12/20/18 Admission Dx/Problem (Free Text: Admission Diagnosis/Problem Admission Diagnosis/Problem Hypoglycemia Subjective Update: Patient is doing well. She's had no more episodes of hypoglycemia. She is tolerating her diet and we are covering her with a sliding scale. - Review of Systems General: Reports: No Symptoms HEENT: Reports: No Symptoms Pulmonary: Reports: No Symptoms Cardiovascular: Reports: No Symptoms Gastrointestinal: Reports: No Symptoms - Patient Data Vitals - Most Recent: Last Vital Signs Temp 97.9 F 12/20/18 08:21 Pulse 80 12/20/18 08:21 Resp 18 12/20/18 08:21 BP 125/88 12/20/18 08:21 Pulse Ox 97 12/20/18 08:21 Weight - Most Recent: 176 lb 9.6 oz I&O - Last 24 hours: Intake & Output 12/19/18 12/20/18 12/20/18 22:59 06:59 14:59 Intake Total 180 400 180 Balance 180 400 180 Lab Results - Last 24 hrs: Laboratory Results - last 24 hr 12/19/18 12/19/18 12/19/18 Range/Units 14:34 14:34 17:31 WBC (3.98-10.04) K/mm3 RBC (3.98-5.22) M/mm3 Hgb (11.2-15.7) gm/L Hct (34.1-44.9) % MCV (79.4-94.8) fl MCH (25.6-32.2) pg MCHC (32.2-35.5) g/dl RDW Std Deviation (36.4-46.3) fL Plt Count (182-369) K/mm3 MPV (9.4-12.3) fl Neut % (Auto) (34.0-71.1) % Lymph % (Auto) (19.3-51.7) % [place] % (Auto) (4.7-12.5) % Eos % (Auto) (0.7-5.8) Baso % (Auto) (0.1-1.2) % Neut # (Auto) (1.56-6.13) K/mm3 Lymph # (Auto) (1.18-3.74) K/mm3 [place] # (Auto) (0.24-0.36) K/mm3 Eos # (Auto) (0.04-0.36) K/mm3 Baso # (Auto) (0.01-0.08) K/mm3 Manual Slide Review Sodium (136-145) mEq/L Potassium (3.5-5.1) mEq/L Chloride (98-107) mEq/L Carbon Dioxide (21-32) mEq/L Anion Gap (5-15) BUN (7-18) mg/dL Creatinine (0.55-1.02) mg/dL Est Cr Clr Drug Dosing mL/min Estimated GFR (MDRD) (>60) mL/min BUN/Creatinine Ratio (14-18) Glucose 110 (83-115) mg/dL POC Glucose 231 H (83-110) mg/dL Calcium (8.5-10.1) mg/dL Magnesium 2.1 (1.8-2.4) mg/dl Total Bilirubin (0.2-1.0) mg/dL AST (15-37) U/L ALT (14-59) U/L Alkaline Phosphatase (46-116) U/L Total Protein (6.4-8.2) g/dl Albumin (3.4-5.0) g/dl Globulin gm/dL Albumin/Globulin Ratio (1-2) Urine Color (Yellow) Urine Appearance (Clear) Urine pH (5.0-8.0) Ur Specific [place] (1.005-1.030) Urine Protein (Negative) Urine Glucose (UA) (Negative) Urine Ketones (Negative) Urine Occult Blood (Negative) Urine Nitrite (Negative) Urine Bilirubin (Negative) Urine Urobilinogen (0.2-1.0) Ur Leukocyte Esterase (Negative) Urine RBC (0-5) /hpf Urine WBC (0-5) /hpf Ur Squamous Epith Cells (0-5) /hpf Urine Bacteria (FEW) /hpf Urine Mucus (FEW) /hpf 12/19/18 12/19/18 12/19/18 Range/Units 18:38 19:59 22:14 WBC (3.98-10.04) K/mm3 RBC (3.98-5.22) M/mm3 Hgb (11.2-15.7) gm/L Hct (34.1-44.9) % MCV (79.4-94.8) fl MCH (25.6-32.2) pg MCHC (32.2-35.5) g/dl RDW Std Deviation (36.4-46.3) fL Plt Count (182-369) K/mm3 MPV (9.4-12.3) fl Neut % (Auto) (34.0-71.1) % Lymph % (Auto) (19.3-51.7) % [place] % (Auto) (4.7-12.5) % Eos % (Auto) (0.7-5.8) Baso % (Auto) (0.1-1.2) % Neut # (Auto) (1.56-6.13) K/mm3 Lymph # (Auto) (1.18-3.74) K/mm3 [place] # (Auto) (0.24-0.36) K/mm3 Eos # (Auto) (0.04-0.36) K/mm3 Baso # (Auto) (0.01-0.08) K/mm3 Manual Slide Review Sodium (136-145) mEq/L Potassium (3.5-5.1) mEq/L Chloride (98-107) mEq/L Carbon Dioxide (21-32) mEq/L Anion Gap (5-15) BUN (7-18) mg/dL Creatinine (0.55-1.02) mg/dL Est Cr Clr Drug Dosing mL/min Estimated GFR (MDRD) (>60) mL/min BUN/Creatinine Ratio (14-18) Glucose (83-115) mg/dL POC Glucose 208 H 155 H (83-110) mg/dL Calcium (8.5-10.1) mg/dL Magnesium (1.8-2.4) mg/dl Total Bilirubin (0.2-1.0) mg/dL AST (15-37) U/L ALT (14-59) U/L Alkaline Phosphatase (46-116) U/L Total Protein (6.4-8.2) g/dl Albumin (3.4-5.0) g/dl Globulin gm/dL Albumin/Globulin Ratio (1-2) Urine Color Light yellow (Yellow) Urine Appearance Clear (Clear) Urine pH 6.0 (5.0-8.0) Ur Specific [place] 1.015 (1.005-1.030) Urine Protein Negative (Negative) Urine Glucose (UA) Negative (Negative) Urine Ketones Negative (Negative) Urine Occult Blood Negative (Negative) Urine Nitrite Negative (Negative) Urine Bilirubin Negative (Negative) Urine Urobilinogen 0.2 (0.2-1.0) Ur Leukocyte Esterase Negative (Negative) Urine RBC 0-5 (0-5) /hpf Urine WBC 0-5 (0-5) /hpf Ur Squamous Epith Cells 0-5 (0-5) /hpf Urine Bacteria Occasional (FEW) /hpf Urine Mucus Not seen (FEW) /hpf 12/20/18 12/20/18 12/20/18 Range/Units 02:09 05:43 05:43 WBC 11.93 H (3.98-10.04) K/mm3 RBC 4.10 (3.98-5.22) M/mm3 Hgb 10.1 L D (11.2-15.7) gm/L Hct 33.4 L (34.1-44.9) % MCV 81.5 (79.4-94.8) fl MCH 24.6 L (25.6-32.2) pg MCHC 30.2 L (32.2-35.5) g/dl RDW Std Deviation 46.5 H (36.4-46.3) fL Plt Count 285 (182-369) K/mm3 MPV 10.4 (9.4-12.3) fl Neut % (Auto) 45.0 (34.0-71.1) % Lymph % (Auto) 42.5 (19.3-51.7) % [place] % (Auto) 9.7 (4.7-12.5) % Eos % (Auto) 2.2 (0.7-5.8) Baso % (Auto) 0.3 (0.1-1.2) % Neut # (Auto) 5.37 (1.56-6.13) K/mm3 Lymph # (Auto) 5.07 H (1.18-3.74) K/mm3 [place] # (Auto) 1.16 H (0.24-0.36) K/mm3 Eos # (Auto) 0.26 (0.04-0.36) K/mm3 Baso # (Auto) 0.03 (0.01-0.08) K/mm3 Manual Slide Review Abnormal smear Sodium 139 (136-145) mEq/L Potassium 4.2 (3.5-5.1) mEq/L Chloride 105 (98-107) mEq/L Carbon Dioxide 26 (21-32) mEq/L Anion Gap 12.2 (5-15) BUN 37 H (7-18) mg/dL Creatinine 2.1 H (0.55-1.02) mg/dL Est Cr Clr Drug Dosing 18.91 mL/min Estimated GFR (MDRD) 23 (>60) mL/min BUN/Creatinine Ratio 17.6 (14-18) Glucose 200 H (83-115) mg/dL POC Glucose 173 H (83-110) mg/dL Calcium 8.8 (8.5-10.1) mg/dL Magnesium (1.8-2.4) mg/dl Total Bilirubin 0.4 (0.2-1.0) mg/dL AST 16 (15-37) U/L ALT 14 (14-59) U/L Alkaline Phosphatase 78 (46-116) U/L Total Protein 5.7 L (6.4-8.2) g/dl Albumin 2.8 L (3.4-5.0) g/dl Globulin 2.9 gm/dL Albumin/Globulin Ratio 1.0 (1-2) Urine Color (Yellow) Urine Appearance (Clear) Urine pH (5.0-8.0) Ur Specific [place] (1.005-1.030) Urine Protein (Negative) Urine Glucose (UA) (Negative) Urine Ketones (Negative) Urine Occult Blood (Negative) Urine Nitrite (Negative) Urine Bilirubin (Negative) Urine Urobilinogen (0.2-1.0) Ur Leukocyte Esterase (Negative) Urine RBC (0-5) /hpf Urine WBC (0-5) /hpf Ur Squamous Epith Cells (0-5) /hpf Urine Bacteria (FEW) /hpf Urine Mucus (FEW) /hpf 12/20/18 12/20/18 12/20/18 Range/Units 06:32 10:45 14:19 WBC (3.98-10.04) K/mm3 RBC (3.98-5.22) M/mm3 Hgb (11.2-15.7) gm/L Hct (34.1-44.9) % MCV (79.4-94.8) fl MCH (25.6-32.2) pg MCHC (32.2-35.5) g/dl RDW Std Deviation (36.4-46.3) fL Plt Count (182-369) K/mm3 MPV (9.4-12.3) fl Neut % (Auto) (34.0-71.1) % Lymph % (Auto) (19.3-51.7) % [place] % (Auto) (4.7-12.5) % Eos % (Auto) (0.7-5.8) Baso % (Auto) (0.1-1.2) % Neut # (Auto) (1.56-6.13) K/mm3 Lymph # (Auto) (1.18-3.74) K/mm3 [place] # (Auto) (0.24-0.36) K/mm3 Eos # (Auto) (0.04-0.36) K/mm3 Baso # (Auto) (0.01-0.08) K/mm3 Manual Slide Review Sodium (136-145) mEq/L Potassium (3.5-5.1) mEq/L Chloride (98-107) mEq/L Carbon Dioxide (21-32) mEq/L Anion Gap (5-15) BUN (7-18) mg/dL Creatinine (0.55-1.02) mg/dL Est Cr Clr Drug Dosing mL/min Estimated GFR (MDRD) (>60) mL/min BUN/Creatinine Ratio (14-18) Glucose (83-115) mg/dL POC Glucose 199 H 229 H 181 H (83-110) mg/dL Calcium (8.5-10.1) mg/dL Magnesium (1.8-2.4) mg/dl Total Bilirubin (0.2-1.0) mg/dL AST (15-37) U/L ALT (14-59) U/L Alkaline Phosphatase (46-116) U/L Total Protein (6.4-8.2) g/dl Albumin (3.4-5.0) g/dl Globulin gm/dL Albumin/Globulin Ratio (1-2) Urine Color (Yellow) Urine Appearance (Clear) Urine pH (5.0-8.0) Ur Specific [place] (1.005-1.030) Urine Protein (Negative) Urine Glucose (UA) (Negative) Urine Ketones (Negative) Urine Occult Blood (Negative) Urine Nitrite (Negative) Urine Bilirubin (Negative) Urine Urobilinogen (0.2-1.0) Ur Leukocyte Esterase (Negative) Urine RBC (0-5) /hpf Urine WBC (0-5) /hpf Ur Squamous Epith Cells (0-5) /hpf Urine Bacteria (FEW) /hpf Urine Mucus (FEW) /hpf Med Orders - Current: Current Medications Acetaminophen (Tylenol) 650 mg PO Q4H PRN PRN Reason: Pain (Mild 1-3)/fever Carvedilol (Coreg) 6.25 mg PO BID [facility] Last Admin: 12/20/18 08:21 Dose: 6.25 mg Furosemide (Lasix) 20 mg PO DAILY [facility] Last Admin: 12/20/18 08:12 Dose: 20 mg Insulin Glargine (Lantus) 15 unit SUBCUT BEDTIME [facility] Insulin Human Lispro (Humalog) 0 unit SUBCUT QIDACANDBED [facility]; Protocol Last Admin: 12/20/18 11:44 Dose: 2 units Insulin Human Lispro (Humalog) 4 unit SUBCUT TIDAC [facility] Last Admin: 12/20/18 11:45 Dose: 4 units Levothyroxine Sodium (Synthroid) 50 mcg PO ACBREAKFAST [facility] Last Admin: 12/20/18 05:44 Dose: 50 mcg Pantoprazole Sodium (Protonix) 40 mg PO ACBREAKFAST [facility] Last Admin: 12/20/18 08:12 Dose: 40 mg Sodium Chloride (Saline Flush) 10 ml FLUSH ASDIRECTED PRN PRN Reason: Keep Vein Open Last Admin: 12/19/18 13:24 Dose: 10 ml Discontinued Medications Dextrose/Lactated Ringer's (Dextrose 5%-Lactated Ringers) 1,000 mls @ 75 mls/ hr IV ASDIRECTED [facility] Last Admin: 12/19/18 17:11 Dose: 75 mls/hr Insulin Human Lispro (Humalog) 2 unit SUBCUT ONETIME ONE Stop: 12/19/18 17:51 Last Admin: 12/19/18 18:04 Dose: 2 units Insulin Human Lispro (Humalog) 3 unit SUBCUT TIDAC [facility] Last Admin: 12/20/18 11:00 Dose: Not Given Omeprazole (Omeprazole) 40 mg PO ACBREAKFAST [facility] Last Admin: 12/20/18 05:51 Dose: Not Given - Exam General: Reports: Alert, Oriented HEENT: Reports: Pupils Equal, Pupils Reactive Neck: Reports: Supple Lungs: Reports: Clear to Auscultation, Normal Respiratory Effort Cardiovascular: Reports: Regular Rate, Regular Rhythm GI/Abdominal Exam: Normal Bowel Sounds, Soft, Non-Tender, No Organomegaly, No Distention Extremities: Normal Inspection
[2018-12-20] MEDS ORDERED: Insulin Glarg,Human.Rec.Analog 100 UNIT/ML ML SUBCUT SCH (21:00)
--- NOTE | 2018-12-22 08:03 | CR ---
Abdomen: Supine view of the abdomen was obtained. Comparison: No prior abdominal x-ray, previous abdominal MRI dated 02/26/16. Scoliosis and mild degenerative change is scattered within the spine. Vascular calcification is identified. Surgical clips are seen within the upper right abdomen from previous cholecystectomy. Calcifications are seen within the pelvis which are compatible with phleboliths. Bowel gas pattern appears normal. Impression: 1. Incidental findings. Nothing acute is appreciated. Diagnostic code #2
--- NOTE | 2018-12-22 08:30 | CR ---
Chest: Two views of the chest were obtained. Comparison: Prior chest x-ray of 08/21/17. Heart size is normal. Tortuous thoracic aorta is seen. Left moderately large hiatal hernia is seen. Surgical clips are seen from prior cholecystectomy. Several stable granulomas are noted within the right lung base. Lungs show no acute parenchymal change. Impression: 1. Incidental findings as noted above. Nothing acute is appreciated. Diagnostic code #2
== END 2018-12-20 14:25 | disposition home or self-care (01) ==
LOC: JD.ED 12:22 → JD.MS 16:17
PROVIDERS: ADMIT Family Medicine; ATTEND Family Medicine
DX: E11.649 Type 2 diabetes mellitus with hypoglycemia without coma (principal); I12.9 Hypertensive chronic kidney disease with stage 1 through stage 4 chronic kidney disease, or unspecified chronic kidney disease; E11.22 Type 2 diabetes mellitus with diabetic chronic kidney disease; N18.4 Chronic kidney disease, stage 4 (severe); E78.00 Pure hypercholesterolemia, unspecified; E03.9 Hypothyroidism, unspecified; K21.9 Gastro-esophageal reflux disease without esophagitis; M19.90 Unspecified osteoarthritis, unspecified site; Z79.4 Long term (current) use of insulin; Z79.899 Other long term (current) drug therapy
CPT/HCPCS: 36415; 71046; 74018; 80053; 81001; 82947; 82962; 83735; 84443; 84484; 85007; 85025; 85027; 86140; 93005; 99284; A9270; J7042; G0378

== ENCOUNTER 2019-04-07 08:34 | Day surgery (SDC) | payer MEDICARE, OTHER ==
[~2019-04-07 08:34] MED LIST changes: +Lidocaine 1%/Sod Bicarbonate in NS 8.4% 1 ML Syringe IDERM PRN; -Lidocaine 1%/Sod Bicarbonate in NS 8.4% 1 ML Syringe PRN; +ceFAZolin 1 GM Vial ONE
[2019-04-07] MEDS ORDERED: Bupivacaine 0.5%/EPINEPHrine 1:200,000 50 ML MDV ONE (10:57)
[2019-04-07 12:07] VITALS: BP 139/56; PULSE 67
--- NOTE | 2019-04-07 19:13 | OR ---
DATE OF OPERATION: 04/07/2019 SURGEON: Geovanni Enriquez MD PREOPERATIVE DIAGNOSIS: Cervical lymphadenopathy and question of lymphoma. POSTOPERATIVE DIAGNOSIS: Cervical lymphadenopathy and question of lymphoma. OPERATION PERFORMED: Open biopsy of a posterior triangle cervical lymph node. ANESTHESIA: 13 mL of 0.5% Marcaine with epinephrine. COMPLICATIONS: None. ESTIMATED BLOOD LOSS: 1 mL. FINDINGS: She had a 1.5 cm fairly unremarkable looking though friable lymph node in the posterior triangle of the left neck which was mobile. PATHOLOGY: Posterior triangle cervical lymph node on the left. Half of the lymph node was sent fresh in normal saline and refrigerated condition, and the other half was sent in formalin for pathological examination, query lymphoma. COMPLICATIONS: None. DISPOSITION: Stable at the end of the procedure. INDICATION: The patient is an 84-year-old female who was referred to me for cervical lymphadenopathy. CT scan showed extensive lymphadenopathy throughout the neck, worse on the left than the right. On physical exam, she had a palpable mobile cervical lymph node in the posterior triangle on the left, which was fairly superficial. She was offered surgical excision to get a diagnosis. She was fully informed of the major risks of the procedure. These include, but are not limited to injury to the nerves of the neck including the spinal accessory nerve and ansa cervicalis causing numbness or weakness of the left shoulder. She gave informed consent. Please see my H and P for further details of that discussion. DESCRIPTION OF PROCEDURE: The patient was brought to the operating room and placed in a supine position on the operating table resting on a back roll. The neck was slightly extended to her comfort as she had turned her head to the right. The left neck was prepped and draped in usual sterile fashion. I prepped out the posterior triangle. I infused the skin and subcutaneous tissue along the palpable lymph node, which was premarked on the skin with 0.5% Marcaine for local anesthesia with epinephrine, 13 mL was used for the entire procedure. The incision was created with a #15 blade. This was deepened through the dermis down the subcutaneous fat. A Weitlaner retractor was used to expose the operative field. I dissected down through the cervical deep fascia down to the posterior cervical triangle. I palpated the lymph node. I grasped it with an Allis and then brought it into the operative field. A hemostat was used to dissect its surrounding attachments and the lymphatics were secured with hemoclips. The lymph node was then extirpated and then cut into half with a blade. Half was sent in formalin and the other half in normal saline refrigerated. It was immediately sent to pathology for further examination. At this point, I inspected the neck for any bleeding, there was none. She was thoroughly irrigated. I asked her to shrug her shoulder, which she did promptly. The neck was then closed with a 4-0 Monocryl suture material. Dermabond was applied for sterile barrier. She had no complications and tolerated the procedure well. She was then moved in an awake condition back to the recovery. MMODAL /[id number]
== END 2019-04-07 12:17 | disposition home or self-care (01) ==
LOC: JD.SDS 08:34
PROVIDERS: ATTEND Surgery
DX: C83.01 Small cell B-cell lymphoma, lymph nodes of head, face, and neck (principal); I12.9 Hypertensive chronic kidney disease with stage 1 through stage 4 chronic kidney disease, or unspecified chronic kidney disease; E11.22 Type 2 diabetes mellitus with diabetic chronic kidney disease; N18.4 Chronic kidney disease, stage 4 (severe); E78.00 Pure hypercholesterolemia, unspecified; E03.9 Hypothyroidism, unspecified; E53.8 Deficiency of other specified B group vitamins; K21.9 Gastro-esophageal reflux disease without esophagitis; G25.81 Restless legs syndrome; M51.36 Other intervertebral disc degeneration, lumbar region; M19.90 Unspecified osteoarthritis, unspecified site; Z91.040 Latex allergy status; Z85.828 Personal history of other malignant neoplasm of skin; Z79.4 Long term (current) use of insulin; Z79.82 Long term (current) use of aspirin; Z79.899 Other long term (current) drug therapy
CPT/HCPCS: 38510; 82962; J3490; 88305; 88341; 88342; J0690

== ENCOUNTER 2022-06-04 17:21 | Emergency (ER) | payer MEDICARE, OTHER ==
[2022-06-04] MEDS ORDERED: 50% Dextrose in Water 50 ML Syringe ONE (17:27)
[2022-06-04 17:45] VITALS: PULSE 68
[2022-06-04] MEDS ORDERED: Sodium Chloride 0.9% 1,000 ML IV ONE (19:08)
[2022-06-05 00:03] VITALS: BP 176/80
== END 2022-06-04 22:30 | disposition home or self-care (01) ==
LOC: JD.ED 17:21
DX: E11.649 Type 2 diabetes mellitus with hypoglycemia without coma (principal); E11.22 Type 2 diabetes mellitus with diabetic chronic kidney disease; N18.4 Chronic kidney disease, stage 4 (severe); E03.9 Hypothyroidism, unspecified; Z79.4 Long term (current) use of insulin; Z79.899 Other long term (current) drug therapy
CPT/HCPCS: 36415; 70450; 71045; 80053; 82947; 83605; 83690; 84484; 85025; 93005; 96360; 99285; J7030

== ENCOUNTER 2023-02-07 19:27 | Emergency (ER) | payer MEDICARE, OTHER ==
[2023-02-07 23:51] VITALS: BP 182/89; PULSE 84
== END 2023-02-07 21:14 | disposition home or self-care (01) ==
LOC: JD.ED 19:27
DX: R07.81 Pleurodynia (principal); R59.9 Enlarged lymph nodes, unspecified; E78.00 Pure hypercholesterolemia, unspecified; I12.9 Hypertensive chronic kidney disease with stage 1 through stage 4 chronic kidney disease, or unspecified chronic kidney disease; E11.22 Type 2 diabetes mellitus with diabetic chronic kidney disease; N18.4 Chronic kidney disease, stage 4 (severe); M19.90 Unspecified osteoarthritis, unspecified site; E03.9 Hypothyroidism, unspecified; Z79.899 Other long term (current) drug therapy; Z86.16 Personal history of COVID-19; Z79.4 Long term (current) use of insulin; Z91.040 Latex allergy status; W01.0XXA Fall on same level from slipping, tripping and stumbling without subsequent striking against object, initial encounter; Y93.01 Activity, walking, marching and hiking
CPT/HCPCS: 71250; 71250-26; 74176; 74176-26; 99283